=== PATIENT | female | born 1965 | race Caucasian/White ===

== ENCOUNTER → 2018-08-28 | Outpatient (CLI) | payer OTHER ==
[~2018-08-28] MED LIST: ACEBUTCAFT PO; ACYC200 PO; ASPI81EC PO; CETI10 PO; CYCL10 PO; DULO60 PO; ESTR2 PO; FOLI1 PO; GEMF600 PO; HYDACE5 PO; HYDHCL25 PO; IBUP800; IBUP800 PO; LEVCAR25ER PO; LEVSOD150 PO; MECL25 PO; MELO7.5 PO; METF500 PO; METPRE4DP PO; MUCINEX SINUS-1 EAC1 PO; OMEP40CA12 PO; PROC10 PO; Prilosec Otc20 MG PO; VARE1 PO
== END ==
LOC: LAB 13:58 → LAB SHORT 13:58
DX: F15.21 Other stimulant dependence, in remission (principal)
CPT/HCPCS: G0480